=== PATIENT | female | born 1945 | race Caucasian/White ===

== ENCOUNTER → 2017-04-16 15:45 | Emergency (ER) | payer MEDICARE, BC ==
--- NOTE | 2017-04-16 19:17 | RAD ---
Indication: Left leg pain.. Duplex Doppler sonography of the deep venous system of the left lower extremity deep venous system was performed. Bilaterally the common femoral veins appear patent and compressible. Left proximal greater saphenous vein, proximal deep femoral vein, femoral vein, popliteal vein, posterior tibial veins and peroneal veins appear patent and compressible. Fluid collection in the medial aspect of the knee measuring 4.3 x 1.4 x 2.9 cm. IMPRESSION: NO EVIDENCE OF DEEP VENOUS THROMBOSIS IS IDENTIFIED.
--- NOTE | 2017-04-16 19:53 | ED ---
Lower Extremity - HPI Summary HPI Summary: 72F presents left upper leg pain today. Over the last month she has had bilateral leg pain with vein bulging has been occurring. She states the pain has comes and goes. She states that it work her up out of sleep and then it occurred when she was walking. She is not on any blood thinners. She denies any injury. She denies any recent travel. She does not have a family history of blood clots. She was sent here for an u/s by her primary to rule out a DVT. - History of Current Complaint Chief Complaint: EDExtremityLower Stated Complaint: LEFT LEG POSSIBEL DVT Time Seen by Provider: 04/16/17 18:39 Pain Intensity: 7 - Allergies/Home Medications Allergies/Adverse Reactions: Allergies Allergy/AdvReac Type Severity Reaction Status Date / Time Ciprofloxacin Allergy Severe Anaphylatic Verified 04/16/17 15:57 Shock Diphenhydramine Allergy Severe Anaphylatic Verified 04/16/17 15:57 [From Benadryl] Shock Hydrocodone Allergy Severe See Comment Verified 04/16/17 15:57 Sulfamethoxazole Allergy Severe Rash Verified 04/16/17 15:57 w/Trimethoprim [From Bactrim] PMH/Surg Hx/FS Hx/Imm Hx Endocrine/Hematology History: Denies: Hx Anticoagulant Therapy Cardiovascular History: Reports: Hx Hypertension Musculoskeletal History: Denies: Hx Osteoporosis - Cancer History Hx Chemotherapy: No Hx Radiation Therapy: No Infectious Disease History: No Infectious Disease History: Denies: Traveled Outside the [place] in Last 30 Days - Family History Known Family History: Positive: Hypertension - Social History Alcohol Use: Occasionally Substance Use Type: Reports: None Smoking Status (MU): Never Smoked Tobacco Review of Systems Negative: Fever Negative: Chest Pain Negative: Shortness Of Breath Positive: Myalgia - left thigh pain All Other Systems Reviewed And Are Negative: Yes Physical Exam Triage Information Reviewed: Yes Vital Signs On Initial Exam: Initial Vitals Temp Pulse Resp BP Pulse Ox 98.0 F 68 16 119/62 100 04/16/17 15:51 04/16/17 15:51 04/16/17 15:51 04/16/17 15:51 04/16/17 15:51 Vital Signs Reviewed: Yes Appearance: Positive: Well-Appearing Skin: Positive: Warm, Dry Head/Face: Positive: Normal Head/Face Inspection Eyes: Positive: Normal, Conjunctiva Clear Respiratory/Lung Sounds: Positive: Clear to Auscultation, Breath Sounds Present Cardiovascular: Positive: Normal, RRR Musculoskeletal: Positive: Strength/ROM Intact - left extremity, Other - good pulses, capillary refill<2 secs, tender along medial ascpect of thigh, varicose veins present on bilateral legs, no edema noted. Negative: Abbie Sign Left Diagnostics - Vital Signs Vital Signs Temp Pulse Resp BP Pulse Ox 04/16/17 15:51 98.0 F 68 16 119/62 100 - Laboratory Lab Statement: Any lab studies that have been ordered have been reviewed, and results considered in the medical decision making process. Lower Extremity Course/Dx - Course Course Of Treatment: 72F presents left upper leg pain today. Over the last month she has had bilateral leg pain with vein bulging has been occurring. She states the pain has comes and goes. She states that it work her up out of sleep and then it occurred when she was walking. She is not on any blood thinners. She denies any injury. u/s normal. good pulses and strength of extremity. explained do not have a cause for pain but to follow up with primary. patient understands and agrees with plan - Diagnoses Differential Diagnosis/HQI/PQRI: Positive: DVT, Fracture (Closed), Sprain Provider Diagnoses: Left leg pain Discharge - Discharge Plan Condition: Good Disposition: HOME Patient Education Materials: Leg Pain (ED) Referrals: Anh Thompson MD [Primary Care Provider] - Additional Instructions: Follow up with primary Use compression socks Return to ED if develop any new or worsening symptoms
[2017-04-16 19:59] VITALS: BP 114/67
== END | disposition home or self-care (01) ==
LOC: ED 15:45
DX: M79.605 Pain in left leg (principal)
CPT/HCPCS: 99281

== ENCOUNTER 2017-09-10 05:25 | Emergency (ER) | payer MEDICARE, BC ==
[2017-09-10] MEDS ORDERED: predniSONE TAB* 20 MG PO ONE (06:20)
[2017-09-10 07:05] VITALS: BP 119/76
--- NOTE | 2017-09-26 19:43 | ED ---
Mi Montano Gabriel scribcourtney for Amandeep Ayala on 09/10/17 at 0613 . Allergic Reaction/Systemic - HPI Summary HPI Summary: This patient is a 72 year old F presenting to [facility] accompanied by with a chief complaint of a possible allergic reaction since 230. Patient reports a tingling and tightness around her jaw, strange metallic taste when eating, and tightness on swallowing. Patient denies cp, sob, rash, sore throat, and itching. Patient has had a root canal and has recently been taking amoxicillin. . - History of Current Complaint Chief Complaint: EDAllergicReaction Time Seen by Provider: 09/10/17 06:03 Hx Obtained From: Patient Onset/Duration: Still Present Timing: Constant Pain Intensity: 0 Pain Scale Used: 0-10 Numeric Associated Signs And Symptoms: Positive: Negative - cp, sob, rash, sore throat, itching, Throat Tightening - tight on swallowing - Allergies/Home Medications Allergies/Adverse Reactions: Allergies Allergy/AdvReac Type Severity Reaction Status Date / Time Ciprofloxacin Allergy Severe Anaphylatic Verified 04/16/17 15:57 Shock Diphenhydramine Allergy Severe Anaphylatic Verified 04/16/17 15:57 [From Benadryl] Shock Hydrocodone Allergy Severe See Comment Verified 04/16/17 15:57 Sulfamethoxazole Allergy Severe Rash Verified 04/16/17 15:57 w/Trimethoprim [From Bactrim] PMH/Surg Hx/FS Hx/Imm Hx Previously Healthy: No Endocrine/Hematology History: Denies: Hx Anticoagulant Therapy Cardiovascular History: Reports: Hx Hypertension Musculoskeletal History: Denies: Hx Osteoporosis - Cancer History Hx Chemotherapy: No Hx Radiation Therapy: No Infectious Disease History: No Infectious Disease History: Reports: Traveled Outside the [place] in Last 30 Days - [place] - Family History Known Family History: Positive: Hypertension - Social History Alcohol Use: Occasionally Hx Substance Use: No Substance Use Type: Reports: None Hx Tobacco Use: No Smoking Status (MU): Never Smoked Tobacco Review of Systems Positive: Other - tightness around jaw, metallic taste when eating, tightness in throat on swallowing . Negative: Sore Throat Negative: Chest Pain Negative: Shortness Of Breath Skin: Negative - itching Negative: Rash All Other Systems Reviewed And Are Negative: Yes Physical Exam - Summary Physical Exam Summary: Appearance: Well appearing, no pain distress Skin: warm, dry, reflects adequate perfusion Head/face: normal Eyes: EOMI, BRAD ENT: normal Neck: supple, non-tender Respiratory: CTA, breath sounds present Cardiovascular: RRR, pulses symmetrical Abdomen: non-tender, soft Bowel: present Musculoskeletal: normal, strength/ROM intact Neuro: normal, sensory motor intact, A&Ox3 Triage Information Reviewed: Yes Vital Signs On Initial Exam: Initial Vitals Temp Pulse Resp BP Pulse Ox 98.6 F 81 16 122/73 96 09/10/17 05:40 09/10/17 05:40 09/10/17 05:40 09/10/17 05:40 09/10/17 05:40 Vital Signs Reviewed: Yes Diagnostics - Vital Signs Vital Signs Temp Pulse Resp BP Pulse Ox 09/10/17 05:40 98.6 F 81 16 122/73 96 - Laboratory Lab Statement: Any lab studies that have been ordered have been reviewed, and results considered in the medical decision making process. Allergic Reaction Course/Dx - Course Assessment/Plan: This patient is a 72 year old F presenting to [facility] accompanied by with a chief complaint of a possible allergic. Patient refused lab work up, EKG, etc. Patient will be discharged with prescription for Clindamycin, and prednisone . Pt will follow up with Dr. Thompson in 3 days. The patient is agreeable with this plan. - Diagnoses Provider Diagnoses: dental pain status post root canal, Allergic reaction Discharge - Discharge Plan Condition: Stable Disposition: HOME Prescriptions: Clindamycin Cap(NF) [Clindamycin Cap 300 mg Cap(NF)] 300 mg PO Q6H #40 cap Prednisone [Deltasone] 40 mg PO ONCE #4 tab Patient Education Materials: Clindamycin (By mouth), Prednisone (By mouth) Referrals: Anh Thompson MD [Primary Care Provider] - Additional Instructions: RETURN TO THE EMERGENCY DEPARTMENT FOR CHANGING OR WORSENING SYMPTOMS. The documentation as recorded by the Mi hubbard Gabriel accurately reflects the service I personally performed and the decisions made by , Amandeep Ayala.
== END 2017-09-10 07:03 | disposition home or self-care (01) ==
LOC: ED 05:25
DX: K08.89 Other specified disorders of teeth and supporting structures (principal); Z98.818 Other dental procedure status; T78.40XA Allergy, unspecified, initial encounter; X58.XXXA Exposure to other specified factors, initial encounter
CPT/HCPCS: 99282; J7512

== ENCOUNTER 2019-05-15 10:11 | Emergency (ER) | payer MEDICARE, BC ==
[2019-05-15 10:24] VITALS: BP 00/00
--- NOTE | 2019-05-15 10:59 | UC ---
Skin Complaint HPI - HPI Summary HPI Summary: 74 year old female with no PMH, prior prophylaxis for lyme several years ago presents with tick bite, engorged, removed fully by this AM, identified at [employer]. No symptoms- no fever, flu, joint pains, aches, rashes noted. no h/o lyme disease in past - History of Current Complaint Chief Complaint: UCSkin Time Seen by Provider: 05/15/19 10:47 Stated Complaint: TICK BITE Hx Obtained From: Patient ?: No Onset/Duration: Sudden Onset, Lasting Days Current Severity: None Pain Intensity: 0 Pain Scale Used: 0-10 Numeric Location: Discrete - left upper back Aggravating Factor(s): Nothing Alleviating Factor(s): Nothing Associated Signs & Symptoms: Positive: Negative. Negative: Nausea, Numbness, Weakness, Fever, Chills, Throat Tightening, Bruising, Tenderness, Red Streaks Related History: Insect Bite/Sting - Allergy/Home Medications Allergies/Adverse Reactions: Allergies Allergy/AdvReac Type Severity Reaction Status Date / Time ciprofloxacin [From Cipro] Allergy anaph Verified 05/15/19 10:25 diphenhydramine Allergy anaph Verified 05/15/19 10:26 [From Benadryl] hydrocodone Allergy Altered Verified 05/15/19 10:26 Mental Status sulfamethoxazole Allergy Rash Verified 05/15/19 10:27 [From Bactrim] trimethoprim [From Bactrim] Allergy Rash Verified 05/15/19 10:27 PMH/Surg Hx/FS Hx/Imm Hx Previously Healthy: Yes Other History Of: Negative For: Anticoagulant Therapy - Surgical History Surgical History: Yes Surgery Procedure, Year, and Place: Rt KNEE - MANIPULATION DUE TO SCAR TISSUE. TONSILECTOMY. 2 CSECTION. UPJ -KIDNEY STUDY. BREAST BIOSPY - Family History Known Family History: Positive: Hypertension - Social History Alcohol Use: Occasionally Substance Use Type: None Smoking Status (MU): Never Smoked Tobacco Review of Systems All Other Systems Reviewed And Are Negative: Yes Constitutional: Positive: Negative Skin: Positive: Rash - tick bite upper back left Psychological: Positive: Negative Is Patient Immunocompromised?: No Physical Exam Triage Information Reviewed: Yes Appearance: Well-Appearing, No Pain Distress, Well-Nourished Vital Signs: Initial Vital Signs Temp 98 F 05/15/19 10:20 Pulse 88 05/15/19 10:20 Resp 17 08/03/19 10:20 BP 00/00 05/15/19 10:20 Pulse Ox 100 05/15/19 10:20 Vital Signs Reviewed: Yes Eyes: Positive: Conjunctiva Clear ENT: Positive: Hearing grossly normal Musculoskeletal Exam: Normal Neurological Exam: Normal Neurological: Positive: Other: - SITLT upper back Psychological Exam: Normal Skin: Positive: Other - small area of blanching erythema left upper back, no streaking, not TTP, no FB seen. Course/Dx - Course Course Of Treatment: Tick bite, engorged, likely attached for > 48 hours - PRophylaxis given - Doxycycline 200mg once for prophylaxis - Continue to monitor for 3 months for circular rash, fever/ flu like symptoms. - Continue to monitor bite site for infection - Differential Diagnoses - Skin Complaint Differential Diagnoses: Systemic Illness, Tick Born Illness - Diagnoses Provider Diagnosis: Tick bite of back Discharge - Sign-Out/Discharge Documenting (check all that apply): Patient Departure All imaging exams completed and their final reports reviewed: No Studies - Discharge Plan Condition: Good Disposition: HOME Prescriptions: DOXYcycline CAP(*) [DOXYcycline 100MG CAP(*)] 2 tab PO ONCE #2 cap Patient Education Materials: Lyme Disease (ED), Tick Bite (ED) Referrals: Anh Thompson MD [Primary Care Provider] - Additional Instructions: - Doxycycline 200mg once for prophylaxis - Continue to monitor for 3 months for circular rash, fever/ flu like symptoms. - Continue to monitor bite site for infection - Billing Disposition and Condition Condition: GOOD Disposition: Home - Attestation Statements Provider Attestation: Per institutional requirements, I have reviewed the chart, however, I was not consulted specifically or made aware of this patient by the midlevel provider. I did not personally evaluate, interact with , or disposition this patient.
== END 2019-05-15 11:03 | disposition home or self-care (01) ==
LOC: UCEAST 10:11
DX: S30.860A Insect bite (nonvenomous) of lower back and pelvis, initial encounter (principal); W57.XXXA Bitten or stung by nonvenomous insect and other nonvenomous arthropods, initial encounter; Y92.9 Unspecified place or not applicable; Z88.2 Allergy status to sulfonamides
CPT/HCPCS: 99212; G0463

== ENCOUNTER 2019-11-30 12:54 | Emergency (ER) | payer MEDICARE, BC ==
--- NOTE | 2019-11-30 13:15 | ED ---
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 Patient notes that the episodes can last for several minutes to several hours. Symptoms rated 0/10 in severity. Patient denies any fever, cough, shortness of breath, bloody stools, nausea/vomiting, abdominal pain, pain or swelling in bilateral lower extremities. Symptoms aggravated by nothing. Symptoms alleviated by nothing. No cardiac hx. No hx HI, DVT, PE, HTN, diabetes, anemia, hypercholesterolemia. Medications reviewed. Not on aspirin. Allergies noted. Patient states she walks 1-[address]. She reports recent stress. She called her primary care physician today and was advised to come to the Emergency Department for evaluation. - History of Current Complaint Chief Complaint: EDChestPainROMI Time Seen by Provider: 11/30/19 13:07 Hx Obtained From: Patient Onset/Duration: Started Weeks Ago, Still Present Timing: Intermittent Current Severity: None Pain Intensity: 0 Pain Scale Used: 0-10 Numeric Chest Pain Location: Diffuse Chest Pain Radiates: No Character: Other: - Aching Aggravating Factor(s): Nothing Alleviating Factor(s): Nothing Associated Signs and Symptoms: Positive: Negative - fever, cough, shortness of breath, bloody stools, nausea/vomiting, abdominal pain, pain or swelling in bilateral lower extremities, Weakness - Bilateral arm weakness, Other: - bilateral arm soreness/heaviness, fatigue - Allergy/Home Medications Allergies/Adverse Reactions: Allergies Allergy/AdvReac Type Severity Reaction Status Date / Time ciprofloxacin [From Cipro] Allergy anaph Verified 05/15/19 10:25 diphenhydramine Allergy anaph Verified 05/15/19 10:26 [From Benadryl] hydrocodone Allergy Altered Verified 05/15/19 10:26 Mental Status sulfamethoxazole Allergy Rash Verified 05/15/19 10:27 [From Bactrim] trimethoprim [From Bactrim] Allergy Rash Verified 05/15/19 10:27 Home Medications: Home Medications Ascorbic Acid TAB* [Vitamin C TAB*] 500 mg PO DAILY 11/30/19 [History Confirmed 11/30/19] Cholecalciferol TAB* [Vitamin D TAB*] 1,000 unit PO DAILY 11/30/19 [History Confirmed 11/30/19] Multivitamins/Minerals TAB* [Theragran/minerals TAB*] 1 tab PO DAILY 11/30/19 [ History Confirmed 11/30/19] PMH/Surg Hx/FS Hx/Imm Hx Endocrine/Hematology History: Denies: Hx Anticoagulant Therapy, Hx Diabetes, Hx Anemia Cardiovascular History: Denies: Hx Deep Vein Thrombosis, Hx Hypercholesterolemia, Hx Hypertension, Hx Myocardial Infarction, Hx Pacemaker/ICD Respiratory History: Denies: Hx Pulmonary Embolism History: Denies: Hx Dialysis, Hx Renal Disease Musculoskeletal History: Denies: Hx Osteoporosis Sensory History: Denies: Hx Hearing Aid Psychiatric History: Denies: Hx Panic Disorder - Cancer History Hx Chemotherapy: No Hx Radiation Therapy: No - Surgical History Surgery Procedure, Year, and Place: Rt KNEE - MANIPULATION DUE TO SCAR TISSUE. TONSILECTOMY. 2 CSECTION. [facility]J -KIDNEY STUDY. BREAST BIOSPY Infectious Disease History: No Infectious Disease History: Denies: Traveled Outside the [place] in Last 30 Days - Family History Known Family History: Positive: Hypertension - Social History Alcohol Use: Occasionally Hx Substance Use: No Substance Use Type: Reports: None Hx Tobacco Use: No Smoking Status (MU): Never Smoked Tobacco Review of Systems Positive: Fatigue. Negative: Fever Positive: Other - Chest discomfort Negative: Shortness Of Breath, Cough Gastrointestinal: Negative - bloody stools Negative: Abdominal Pain, Vomiting, Nausea Musculoskeletal: Negative - pain or swelling in BLE Neurological/Mental Status: Other - , bilateral arm soreness/weakness/heaviness All Other Systems Reviewed And Are Negative: Yes Physical Exam - Summary Physical Exam Summary: Constitutional: Well-developed, Well-nourished, Alert. (-) Distressed Skin: Warm, Dry HENT: Normocephalic; Atraumatic Eyes: Conjunctiva normal Neck: Musculoskeletal ROM normal neck. (-) JVD, (-) Stridor, (-) Tracheal deviation Cardio: Rhythm regular, rate normal, Heart sounds normal; Intact distal pulses; The pedal pulses are 2+ and symmetric. Radial pulses are 2+ and symmetric. (-) Murmur Pulmonary/Chest wall: Effort normal. (-) Respiratory distress, (-) Wheezes, (-) Rales Abd: Soft, (-) tenderness, (-) Distension, (-) Guarding, (-) Rebound Musculoskeletal: (-) Edema Lymph: (-) Cervical adenopathy Neuro: Alert, Oriented x3 Psych: Mood and affect Normal Triage Information Reviewed: Yes Vital Signs On Initial Exam: Initial Vitals Temp Pulse Resp BP Pulse Ox 98.7 F 79 19 132/70 100 11/30/19 12:57 11/30/19 12:57 11/30/19 12:57 11/30/19 12:57 11/30/19 12:57 Vital Signs Reviewed: Yes Procedures - Sedation Patient Received Moderate/Deep Sedation with Procedure: No Diagnostics - Vital Signs Vital Signs Temp Pulse Resp BP Pulse Ox 11/30/19 12:57 98.7 F 79 19 132/70 100 - Laboratory Result Diagrams: 11/30/19 13:14 11/30/19 13:14 Lab Statement: Any lab studies that have been ordered have been reviewed, and results considered in the medical decision making process. - Radiology chest x-ray Summary of Radiographic Findings: No acute cardiopulmonary process by radiograph. ED Physician has reviewed this report. - EKG 12:58 Cardiac Rate: NL - 78 BPM EKG Rhythm: Sinus Rhythm Summary of EKG Findings: No ischemic changes. ED physician has reviewed and interpreted this EKG Chest Pain Course/Dx - Course Course Of Treatment: 74 year old F referred to the ED by her primary care provider complains of intermittent non-radiating chest discomfort, fatigue, and bilateral arm weakness for several months. No significant PMHx. Physical exam unremarkable. Bloodwork results with no significant abnormalities except for an MPV of 6.9, and a glucose of 101. An EKG shows sinus rhythm rate of 78 BPM with no ischemic changes. CXR shows, per radiologist, No acute cardiopulmonary process by radiograph. Patient will be discharged with follow up from Dr. Thompson. The patient is agreeable with this plan. - Diagnoses Provider Diagnoses: Chest pain Discharge ED - Sign-Out/Discharge Documenting (check all that apply): Patient Departure - Discharge Plan Condition: Stable Disposition: HOME Patient Education Materials: Chest Pain (ED) Referrals: Anh Thompson MD [Primary Care Provider] - 1 Day Additional Instructions: Follow-up with your primary care provider in 1-2 days. Return to the emergency department for any new or worsening symptoms. - Billing Disposition and Condition Condition: STABLE Disposition: Home - Attestation Statements Document Initiated by Scribe: Yes Documenting Scribe: Huma Hu Provider For Whom Scribe is Documenting (Include Credential): Benson Rodgers DO Scribe Attestation: Dusty, Huma Hu, scribed for Benson Rodgers DO on 11/30 at 1828. Scribe Documentation Reviewed: Yes Provider Attestation: The documentation as recorded by the scribe, Huma uH accurately reflects the service I personally performed and the decisions made by , Benson Rodgers DO Status of Scribe Document: Viewed
[2019-11-30 13:24] LABS: ABS Eosinophils 0.1 10^3/ul (0-0.6); ABS Lymphocytes 1.6 10^3/ul (1.0-4.8); ABS Monocytes 0.3 10^3/ul (0-0.8); ABS Neutrophils 4.5 10^3/ul (1.5-7.7); Eosinophil % 0.9 %; Hematocrit 41 % (35-47); Hemoglobin 13.9 g/dL (12.0-16.0); Lymphocyte % 24.1 %; Mean Corpuscular HGB Conc 34 g/dL (31-36); Mean Corpuscular Hemoglobin 31 pg (27-31); Mean Corpuscular Volume 90 fL (80-97); Mean Platelet Volume 6.9 fL (7.4-10.4); Platelet Count 314 10^3/uL (150-450); Red Blood Count 4.56 10^6 /uL (3.70-4.87); Red Cell Distribution Width 14 % (10-15); White Blood Count 6.6 10^3/uL (3.5-10.8)
[2019-11-30 13:34] LABS: Albumin 4.6 g/dL (3.2-5.2); Calcium 9.5 mg/dL (8.6-10.3); INR 0.99 (0.82-1.09); Potassium 3.9 mmol/L (3.5-5.0); Total Bilirubin 0.6 mg/dL (0.2-1.0)
[2019-11-30 13:40] LABS: Albumin/Globulin Ratio 1.9 (1-3); BUN/Creatinine Ratio 18.8 (8-20); EGFR African American 79.5 (>60); EGFR Non-African American 65.7 (>60); Globulin 2.4 g/dL (2-4)
[2019-11-30 17:13] VITALS: BP 119/76
== END 2019-11-30 17:13 | disposition home or self-care (01) ==
LOC: ED 12:54
DX: R07.9 Chest pain, unspecified (principal); R53.83 Other fatigue; Z88.1 Allergy status to other antibiotic agents
CPT/HCPCS: 36415; 71045; 80053; 84484; 85025; 85610; 93005; 99283